=== PATIENT | female | born 1975 | race Caucasian/White ===

== ENCOUNTER 2016-11-25 18:11 | Emergency (ER) | payer OTHER | END 2016-11-25 22:00 | disposition home or self-care (01) | LOC: ER1 18:11 | DX: R21 Rash and other nonspecific skin eruption (principal); E11.9 Type 2 diabetes mellitus without complications; Z88.0 Allergy status to penicillin; Z88.2 Allergy status to sulfonamides; Z88.1 Allergy status to other antibiotic agents; Z88.6 Allergy status to analgesic agent; Z88.8 Allergy status to other drugs, medicaments and biological substances; Z90.49 Acquired absence of other specified parts of digestive tract; Z79.4 Long term (current) use of insulin; Z79.899 Other long term (current) drug therapy | CPT/HCPCS: 96372; 99282; J1100; J2550; Q0177 ==

== ENCOUNTER → 2016-12-10 | Outpatient (CLI) | payer OTHER | LOC: SLEEP 13:51 | DX: G47.33 Obstructive sleep apnea (adult) (pediatric) (principal) | CPT/HCPCS: 95811 ==

== ENCOUNTER 2020-09-10 18:43 | Emergency (ER) | payer OTHER ==
[~2020-09-10 18:43] MED LIST: ALBUTEROL0.63 MG/3 INH; ATIVAN0.5 MG PO; ATORVASTATIN CA20 MG PO; BASAGLAR K100 UNIT/1 SQ; BENTYL 20MG TAB20 MG PO; BRINTELLIX10 MG PO; CARAFATE1 GM/10 ML PO; CLOPIDOGREL75 MG PO; DEPAKOTE ER500 MG PO; ECOTRIN81 MG PO; ELAVIL 10 MG TA10 MG PO; FISH OIL 1,2001 EAC1 PO; K-DUR TAB 10 M10 MEQ PO; K-DUR TAB 20 M20 MEQ PO; KEPPRA500 MG PO; LASIX40 MG PO; LEVOFLOXACIN250 MG PO; LIDOCAINE-PRILO30 GM TOP; MACROBID 100 M100 M1 PO; NITROGLYCERIN2.5 MG PO; NORCO 5-325 TA1 EACH PO; PHENERGAN 12.12.5 M1 PO; PHENERGAN 12.12.5 MG PR; PHENERGAN 25 MG25 M1 PO; PROTONIX40 MG PO; REGLAN10 MG PO; SAVELLA12.5 MG PO; SINGULAIR10 MG PO; SYMBICORT 16010.2 GM INH; SYNTHROID112 MCG PO; TOPAMAX100 MG PO; TOPAMAX50 MG PO; TOPROL XL25 MG PO; TRINTELLIX PO; TRULANCE PO; VENTOLIN HFA 66.7 GM INH; VIMPAT100 MG PO; VISTARIL25 MG PO; ZANTAC150 MG PO; ZOFRAN ODT 4 MG4 MG PO; ZOFRAN ODT 4 MG4 MG SL; ZOFRAN4 MG PO; ZOLOFT25 MG PO; ZYLOPRIM 100 M100 MG PO
[2020-09-10 23:32] LABS: HEMOGLOBIN 14.1 gm/dl (12.3-15.3); RED BLOOD COUNT 4.17 M/UL (4.00-5.10)
[2020-09-10 23:59] LABS: BUN/CREATININE RATIO 12 (0-10)
[2020-10-25] MEDS ORDERED: ECOTRIN81 MG PO (07:05)
[2020-10-25] MEDS ORDERED: HYDROCODON-ACE1 EAC4 PO (07:17)
[2020-10-25] MEDS ORDERED: OMEGA 3 1,0001 EACH PO (07:18)
[2020-10-25] MEDS ORDERED: LEVOTHYROXINE125 MC1 PO (07:18)
[2020-10-25] MEDS ORDERED: SAVELLA12.5 MG PO (07:19)
[2020-10-25] MEDS ORDERED: KEPPRA500 MG PO (07:20)
== END 2020-09-11 03:35 | disposition home or self-care (01) ==
LOC: ER1 18:43
PROVIDERS: Physician Assistant
DX: R10.9 Unspecified abdominal pain (principal); E87.6 Hypokalemia; E78.5 Hyperlipidemia, unspecified; I10 Essential (primary) hypertension; Z90.710 Acquired absence of both cervix and uterus; Z90.49 Acquired absence of other specified parts of digestive tract
CPT/HCPCS: 80053; 81001; 82150; 83690; 85025; 93005; 96374; 99284; J1642; J2405; Q9967

== ENCOUNTER 2020-09-29 02:13 | Observation (INO) | payer OTHER ==
[~2020-09-29] VITALS: Ht 165.1 cm; Wt 102.1 kg
[2020-09-29 02:32] LABS: HEMOGLOBIN 12.9 gm/dl (12.3-15.3); RED BLOOD COUNT 3.89 M/UL (4.00-5.10)
[2020-09-29 02:50] LABS: BUN/CREATININE RATIO 15 (0-10)
[2020-09-29] MEDS ORDERED: BENTYL 10MG CAP10 MG PO (11:13)
[2020-09-29] MEDS ORDERED: FAMOTIDINE40 MG PO (11:21)
[2020-09-29] MEDS ORDERED: XIFAXAN550 MG PO (11:23)
[2020-09-29] MEDS ORDERED: ISOSORBIDE DINIT5 MG PO (11:24)
[2020-09-29] MEDS ORDERED: TRANSDERM-SCOP1 EACH TOP (11:24)
[2020-09-29] MEDS ORDERED: ZYRTEC10 MG PO (11:25)
[2020-09-29] MEDS ORDERED: ABILIFY20 MG PO (11:27)
[2020-09-29] MEDS ORDERED: MULTI FOR HER1 EACH PO (11:27)
[2020-09-29] MEDS ORDERED: ISOSORBIDE MONO30 MG PO (15:52)
--- NOTE | 2020-09-30 11:26 | NUR ---
INSTRUCTED PATIENT HAS A NEW SCRIPT FOR ISOSORBIDE, INFORMATION GIVEN INSTRUCTED ON SIDE EFFECTS VERBALIZED UNDERSTANDING. LA JOHNSON R.N.
[2020-10-25] MEDS ORDERED: ECOTRIN81 MG PO (07:05)
[2020-10-25] MEDS ORDERED: HYDROCODON-ACE1 EAC4 PO (07:17)
[2020-10-25] MEDS ORDERED: LEVOTHYROXINE125 MC1 PO (07:18)
[2020-10-25] MEDS ORDERED: OMEGA 3 1,0001 EACH PO (07:18)
[2020-10-25] MEDS ORDERED: SAVELLA12.5 MG PO (07:19)
[2020-10-25] MEDS ORDERED: KEPPRA500 MG PO (07:20)
== END 2020-09-30 13:25 | disposition home or self-care (01) ==
LOC: ER1 02:13 → CDU 04:43 → M/S 13:47
PROVIDERS: Emergency Medicine; ADMIT Internal Medicine
DX: R07.9 Chest pain, unspecified (principal); I11.9 Hypertensive heart disease without heart failure; E11.43 Type 2 diabetes mellitus with diabetic autonomic (poly)neuropathy; K31.84 Gastroparesis; E11.40 Type 2 diabetes mellitus with diabetic neuropathy, unspecified; R00.0 Tachycardia, unspecified; R20.0 Anesthesia of skin; E78.5 Hyperlipidemia, unspecified; G40.909 Epilepsy, unspecified, not intractable, without status epilepticus; G43.909 Migraine, unspecified, not intractable, without status migrainosus; E66.01 Morbid (severe) obesity due to excess calories; Z68.37 Body mass index [BMI] 37.0-37.9, adult; Z20.822 Contact with and (suspected) exposure to COVID-19; Z79.82 Long term (current) use of aspirin; Z79.02 Long term (current) use of antithrombotics/antiplatelets; Z79.891 Long term (current) use of opiate analgesic; Z79.4 Long term (current) use of insulin; Z86.73 Personal history of transient ischemic attack (TIA), and cerebral infarction without residual deficits
CPT/HCPCS: ECHO; 70496; 70498; 71045; 78452; 80053; 80061; 82550; 82553; 82607; 82746; 82962; 83690; 83735; 83874; 84100; 84439; 84443; 84484; 84550; 85025; 85610; 85730; 93005; 93017; 93306; 94664; 94760; 96374; 99285; A9502; G0378; J1650; J2405; J2785; Q0177; Q9967; U0002

== ENCOUNTER 2020-10-07 18:05 | Emergency (ER) | payer OTHER ==
[~2020-10-07 18:05] MED LIST changes: +ABILIFY20 MG PO; +BENTYL 10MG CAP10 MG PO; +FAMOTIDINE40 MG PO; +ISOSORBIDE DINIT5 MG PO; +ISOSORBIDE MONO30 MG PO; +MULTI FOR HER1 EACH PO; +TRANSDERM-SCOP1 EACH TOP; +XIFAXAN550 MG PO; +ZYRTEC10 MG PO
[2020-10-07 18:56] LABS: HEMOGLOBIN 13.1 gm/dl (12.3-15.3); RED BLOOD COUNT 3.94 M/UL (4.00-5.10); WHITE BLOOD COUNT 7.2 K/UL (4.5-11.0)
[2020-10-07 19:19] LABS: BUN/CREATININE RATIO 15 (0-10)
[2020-10-25] MEDS ORDERED: ECOTRIN81 MG PO (07:05)
[2020-10-25] MEDS ORDERED: HYDROCODON-ACE1 EAC4 PO (07:17)
[2020-10-25] MEDS ORDERED: LEVOTHYROXINE125 MC1 PO (07:18)
[2020-10-25] MEDS ORDERED: OMEGA 3 1,0001 EACH PO (07:18)
[2020-10-25] MEDS ORDERED: SAVELLA12.5 MG PO (07:19)
[2020-10-25] MEDS ORDERED: KEPPRA500 MG PO (07:20)
== END 2020-10-07 21:45 | disposition home or self-care (01) ==
LOC: ER1 18:05
PROVIDERS: Physician Assistant
DX: R07.89 Other chest pain (principal); R11.0 Nausea; R20.2 Paresthesia of skin; E66.9 Obesity, unspecified; E11.9 Type 2 diabetes mellitus without complications; K21.9 Gastro-esophageal reflux disease without esophagitis; E78.5 Hyperlipidemia, unspecified; I10 Essential (primary) hypertension; G40.909 Epilepsy, unspecified, not intractable, without status epilepticus; E11.43 Type 2 diabetes mellitus with diabetic autonomic (poly)neuropathy; K31.84 Gastroparesis; G43.909 Migraine, unspecified, not intractable, without status migrainosus; Z90.49 Acquired absence of other specified parts of digestive tract; Z79.82 Long term (current) use of aspirin; Z79.899 Other long term (current) drug therapy
CPT/HCPCS: 71045; 80053; 82550; 82553; 83874; 84484; 85025; 85379; 93005; 96374; 96375; 99285; J1642; J2405; Q9967

== ENCOUNTER → 2020-10-25 | Outpatient (CLI) | payer OTHER ==
[~2020-10-25] MED LIST changes: +HYDROCODON-ACE1 EAC4 PO; +LEVOTHYROXINE125 MC1 PO; +OMEGA 3 1,0001 EACH PO
[2020-10-25 07:25] LABS: HEMOGLOBIN 13.8 gm/dl (12.3-15.3); RED BLOOD COUNT 4.22 M/UL (4.00-5.10); WHITE BLOOD COUNT 8.1 K/UL (4.5-11.0)
[2020-10-25 07:35] LABS: BUN/CREATININE RATIO 16 (0-10)
== END ==
LOC: CATH 06:33
PROVIDERS: Internal Medicine Cardiovascular Disease
DX: I20.8 Other forms of angina pectoris (principal); I10 Essential (primary) hypertension; E78.00 Pure hypercholesterolemia, unspecified; E66.9 Obesity, unspecified; E11.9 Type 2 diabetes mellitus without complications
CPT/HCPCS: 36415; 71045; 80048; 82962; 85025; 85610; 93005; 99152; C1769; C1887; C1894; J1644; J2250; J3010; J7030; Q9967

== ENCOUNTER 2020-11-06 16:20 | Emergency (ER) | payer OTHER ==
[2020-11-06 18:53] LABS: HEMOGLOBIN 14.1 gm/dl (12.3-15.3); RED BLOOD COUNT 4.24 M/UL (4.00-5.10); WHITE BLOOD COUNT 6.8 K/UL (4.5-11.0)
[2020-11-06 19:25] LABS: BUN/CREATININE RATIO 12 (0-10)
[2020-11-06] MEDS ORDERED: ZOFRAN ODT 4 MG4 MG SL (21:09)
[2020-11-06] MEDS ORDERED: BENTYL 20MG TAB20 MG PO (21:09)
== END 2020-11-06 21:26 | disposition home or self-care (01) ==
LOC: ER1 16:20
PROVIDERS: Physician Assistant Medical
DX: R10.9 Unspecified abdominal pain (principal); R11.2 Nausea with vomiting, unspecified; J44.9 Chronic obstructive pulmonary disease, unspecified; Z90.49 Acquired absence of other specified parts of digestive tract; Z90.710 Acquired absence of both cervix and uterus; Z88.0 Allergy status to penicillin; Z88.2 Allergy status to sulfonamides; Z88.8 Allergy status to other drugs, medicaments and biological substances; Z79.899 Other long term (current) drug therapy
CPT/HCPCS: 80053; 81001; 82150; 83605; 83690; 85025; 85652; 86140; 96374; 96375; 99284; C9113; J2405

== ENCOUNTER 2020-11-17 15:51 | Emergency (ER) | payer OTHER ==
[2020-11-17 17:12] LABS: HEMOGLOBIN 14.3 gm/dl (12.3-15.3); RED BLOOD COUNT 4.32 M/UL (4.00-5.10); WHITE BLOOD COUNT 6.8 K/UL (4.5-11.0)
[2020-11-17 17:33] LABS: BUN/CREATININE RATIO 17 (0-10)
== END 2020-11-17 21:45 | disposition home or self-care (01) ==
LOC: ER1 15:51
PROVIDERS: Physician Assistant
DX: R10.84 Generalized abdominal pain (principal); R11.2 Nausea with vomiting, unspecified; E11.9 Type 2 diabetes mellitus without complications; K31.84 Gastroparesis; I10 Essential (primary) hypertension; Z88.8 Allergy status to other drugs, medicaments and biological substances
CPT/HCPCS: 80053; 81001; 82009; 82800; 83605; 83690; 85025; 96365; 99284; J1200; J2550

== ENCOUNTER 2021-02-03 14:52 | Emergency (ER) | payer OTHER ==
[2021-02-03 16:29] LABS: HEMOGLOBIN 12.1 gm/dl (12.3-15.3); RED BLOOD COUNT 3.67 M/UL (4.00-5.10); WHITE BLOOD COUNT 7.4 K/UL (4.5-11.0)
[2021-02-03 16:49] LABS: BUN/CREATININE RATIO 13 (0-10)
== END 2021-02-03 21:00 | disposition home or self-care (01) ==
LOC: ER1 14:52
PROVIDERS: Preventive Medicine Occupational Medicine
DX: E11.43 Type 2 diabetes mellitus with diabetic autonomic (poly)neuropathy (principal); K31.84 Gastroparesis; I10 Essential (primary) hypertension
CPT/HCPCS: 80053; 82550; 82553; 83690; 83874; 84484; 85025; 85652; 86140; 96374; 99285; J2550; J7030

== ENCOUNTER → 2021-02-10 | Outpatient (CLI) | payer OTHER | LOC: KOH-I 11:05 | DX: M79.642 Pain in left hand (principal); M79.89 Other specified soft tissue disorders | CPT/HCPCS: 73130 ==

== ENCOUNTER → 2021-05-09 | Emergency (ER) | payer OTHER ==
[2021-05-09 15:41] LABS: RED BLOOD COUNT 3.61 M/UL (4.00-5.10); WHITE BLOOD COUNT 6.1 K/UL (4.5-11.0)
[2021-05-09 16:27] LABS: BUN/CREATININE RATIO 12 (0-10)
== END | disposition home or self-care (01) ==
LOC: ER1 13:55
PROVIDERS: Physician Assistant Medical
DX: E11.43 Type 2 diabetes mellitus with diabetic autonomic (poly)neuropathy (principal); K31.84 Gastroparesis; R55 Syncope and collapse; R42 Dizziness and giddiness; Z90.49 Acquired absence of other specified parts of digestive tract; Z90.710 Acquired absence of both cervix and uterus; Z88.6 Allergy status to analgesic agent; Z88.8 Allergy status to other drugs, medicaments and biological substances; Z79.4 Long term (current) use of insulin
CPT/HCPCS: 71045; 80053; 81001; 82550; 82553; 83605; 83690; 83874; 84484; 85025; 93005; 96374; 96375; 99284; J1642; J2405; J7030

== ENCOUNTER → 2022-02-17 | Outpatient (CLI) | payer OTHER | LOC: RAD 07:55 | DX: R13.10 Dysphagia, unspecified (principal) | CPT/HCPCS: 74221 ==